=== PATIENT | female | born 1975 | race Caucasian/White ===

== ENCOUNTER 2021-12-13 11:20 | Emergency (ER) | payer OTHER ==
[2021-12-13] MEDS ORDERED: HYDROmorphone 1 MG/ML CARPUJECT IM STA (11:32)
[2021-12-13] MEDS ORDERED: BACITRACIN ZINC OINT 1 PACKET TOP STA (11:32)
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
[2021-12-13] MEDS ORDERED: IBUPROFEN 600 MG TABLET PO STA (12:25)
[2021-12-13 12:45] VITALS: BP 123/65
== END 2021-12-13 12:45 | disposition home or self-care (01) ==
LOC: ED 11:20
DX: T21.02XA Burn of unspecified degree of abdominal wall, initial encounter (principal); T24.011A Burn of unspecified degree of right thigh, initial encounter; T24.012A Burn of unspecified degree of left thigh, initial encounter; X10.0XXA Contact with hot drinks, initial encounter
CPT/HCPCS: 96372; 99282; 99283; A9270; J1170